=== PATIENT | male | born 1960 | race Caucasian/White ===

== ENCOUNTER → 2025-01-29 12:20 | Outpatient (CLI) | payer MEDICARE, OTHER, SELFPAY ==
--- NOTE | 2025-01-29 12:26 | DI.CT.S_ITS ---
PROCEDURE: CT SOFT TISSUE NECK W CON INDICATIONS: NECK MASS TECHNIQUE: After the administration of intravenous contrast, 3.0 mm axial sections acquired from the sella to the aortic arch. Additional oblique axial 3.0 mm sections acquired through the pharynx. 3 mm thick coronal and sagittal reformats were generated. For radiation dose reduction, the following was used: automated exposure control. COMPARISON: None. FINDINGS: Image quality: Excellent. Lymph nodes: Soft tissue mass measuring 2.4 x 1.8 cm within the left neck area of concern, may represent an enlarged level 2A lymph node. Additional enlarged left cervical lymph node measuring 1.3 cm more inferiorly (level 3). Vessels: Visualized vasculature appears patent. Neck spaces: The oropharynx, nasopharynx, and pharynx demonstrate no mucosal lesions. The vocal cords, false vocal cords, pyriform sinuses, epiglottis, vallecula, and tongue base all appear normal. Extramucosal spaces appear unremarkable. Glands: The parotid and left submandibular glands appear normal. The right submandibular gland appears atrophied Thyroid gland demonstrates no significant abnormality. Miscellaneous: Visualized brain and orbits appear normal. Lung apices appear clear. Superficial soft tissues appear normal. Bones: No suspicious bony lesions. Visualized sinuses and mastoids appear unremarkable. IMPRESSION: Within the area of interest in the left neck is a soft tissue mass measuring 2.4 x 1.8 cm, possibly enlarged lymph node. There is an additional enlarged lymph node more inferiorly measuring 1.3 cm in short axis. Recommend ultrasound-guided sampling for further evaluation or short-term follow-up ultrasound to evaluate for decreased size. Dictated by: Jose Angel Quiroz M.D. on 01/29/2025 at 14:08 Approved by: Jose Angel Quiroz M.D. on 01/29/2025 at 14:16
[2025-01-29 13:00] LABS: Estimated Glomerular Filt Rate > 60 mL/min (>60)
== END ==
PROVIDERS: Family Provider Family Medicine; PCP Internal Medicine; Referring Provider Internal Medicine; Visit Provider Otolaryngology
DX: R59.0 Localized enlarged lymph nodes (principal); R22.1 Localized swelling, mass and lump, neck
CPT/HCPCS: 36415; 70491; 82565; Q9967

== ENCOUNTER 2025-04-04 10:33 | Day surgery (SDC) | payer MEDICARE, OTHER, SELFPAY ==
[2025-03-26 09:17] VITALS: BMI 31.9
--- NOTE | 2025-04-04 | PATH_ITS ---
[facility] Accession Number: [id number] No. of containers..02 Tissue 04 Unknown Storage/container code(s) . 01 Material submitted: . PART A: neck - LEFT NECK MASS (FORMALIN) PART B: neck - LEFT NECK MASS (B-FIXATIVE) . 01 Clinical history: . DRY SLIDES X2; WET SLIDES IN 95% ALCOHOL REAGENT X2 RPMI FIXATIVE X1 SENT TO FLOW CYTOMETRY. . 01 Diagnosis: A/B: LEFT NECK MASS, EXCISION: - Classic follicular lymphoma, grade 3A, follicular pattern, see comment and microscopic description. . COMMENT: Concurrent flow cytometry (ID: [id number]) demonstrated a population of abnormal CD10+ B-lymphocytes without light chain expression, consistent with the above diagnosis. - The findings were discussed with Yvette Gaspar, triage nurse at Dr. Van' office at 1:05 PM, 04/11/2025. [facility] 04/11/2025 1310 Local . 01 Electronically signed: . Trung Marques MD, Pathologist NPI- [id number] . 01 Gross description: . A. Received in formalin with two identifiers and left neck mass, is a presumably previously incised disc of crawford fleshy soft tissue measuring 2.3 x 2.0 x 0.7 cm. Sectioning reveals a pink-crawford, fleshy cut surface. The specimen is submitted entirely in A1-A3. B. Received in B-Plus fixative with two identifiers and left neck mass, is a dome of blue-tinted, previously incised, fleshy soft tissue measuring 2.1 x 1.9 x 1.2 cm. The presumed cut surface is inked blue while the remaining presumed external surface is inked black and sectioning reveals a pink-crawford, fleshy cut surface. Submitted entirely in B1-B3. ([id number]) /MRV 04/05/2025 1900 Local . 01 Microscopic: . - Histologic sections demonstrate lymph node tissue with a prominent atypical lymphoid infiltrate within expansile germinal centers (GC) without clear polarization or tingible body macrophages. These neoplastic GCs contain a mixture of large centroblasts, and small centrocytes. - An immunohistochemical penal was indicated with adequate controls for block A2 and select stains for block B2 (CD3, PAX5, CD10, BCL-2) and show abnormal GCs with intact follicular dendritic cell (ASSISTED) meshworks positive for CD21. GCs are filled with neoplastic lymphoid cells that are positive for CD20, PAX-5, CD10, BCL-6 (patchy, variable intensity), BCL-2, and MUM1 (patchy, variable intensity); while negative for CD5, and Cyclin D1. The Ki-67 proliferation index is high, approximately 50-60% within neoplastic GCs. Background T-cells are mostly present outside the follicles and are highlighted by CD3 and CD5 in a similar fashion, as well as BCL-2. - The overall immunomorphologic pattern is most consistent with follicular lymphoma, now termed Classic Follicular lymphoma by WHO classification of tumors (updated 5th edition). The proportion of centroblasts is greater than 15 per high power field, consistent with grade 3A follicular lymphoma. Note that grading has recently been considered optional for classical follicular lymphoma as no statistically significant difference in clinical outcomes between grades 1, 2, and 3A patients have been identified in several studies. - As part of ongoing machined parts quality inspector, select slides were reviewed by Dr. Rosette Avery who agrees with the interpretation. Technical Note: The immunohistochemical stains reported were performed at [facility] ([address], [facility] [address]). This test was developed, and the performance characteristics were validated by [facility]. It has not been cleared or approved by the Food and Drug Administration. . 01 Pathologist provided ICD-10: R22.1 . 01 CPT . 171200, 985309, Z88446, C00725, 179638 Specimen Comment: A courtesy copy of this report has been sent to [phone] Performed at: [address] [facility] [address] [address] [address] [facility] [place], [place], [place] [id number] MD Frandy Chatman MD Phone: [phone]
[2025-04-04 10:53] VITALS: BP 154/82; PULSE 93; RESP 17; TEMP 37.1; O2SAT 98; BMI 32.0
[2025-04-04] MEDS: LACTATED RINGERS 1,000 ML 84 ML IV (11:06)
[2025-04-04] MEDS: ACETAMINOPHEN 325 MG TABLET 975 MG PO (11:06)
--- NOTE | 2025-04-04 12:35 | PM.PREOP ---
Pre-operative Note Interval Note History & Physical reviewed/Exam performed by Physician: Yes Changes to H&P: No
--- NOTE | 2025-04-04 12:37 | PM.HP.1 ---
History of Present Illness History of Present Illness Time Patient Seen: 12:37 Chief complaint: Left neck mass Narrative: 64-year-old male last seen in clinic 02/04/2025 presents for left deep cervical node excision. FNA in the office was inconclusive, could not rule out low-grade lymphoma. No recent health changes, wishes to proceed. [facility] Medical History Cervical lymphadenopathy Neck mass Bilateral cataracts IBS (irritable bowel syndrome) HTN (hypertension) Surgical History No history of previous surgery Social History Smoking Status: Former smoker alcohol intake: current Meds Home Medications and Allergies Home Medications ?Medication ?Instructions ?Recorded ?Confirmed ?Type No Known Home Medications 04/04/25 04/04/25 History Allergies Allergy/AdvReac Type Severity Reaction Status Date / Time No Known Drug Allergies Allergy Verified 04/04/25 10:46 Review of Systems Review of Systems Narrative: Negative except as listed in the HPI Exam Vital Signs (past 8 hours): - 04/04/25 10:53 Temperature 98.8 F Pulse Rate 93 H Respiratory Rate 17 Blood Pressure 154/82 H Pulse Oximetry 98 Oxygen Delivery Method Room Air Oxygen Delivery Method Room Air Narrative Exam Narrative: Well-developed well-nourished, heart regular rate and rhythm without murmur, lungs clear to auscultation bilaterally Assessment & Plan Assessment & Plan narrative: Assessment: Left neck mass, possible lymphoma Plan: Following discussion of the material risks benefits complications and alternatives, the patient elected to proceed. Time-Based Coding :: [TOTAL MINUTES] spent with patient and on the chart (including review of chart, obtaining history, exam, reviewing outside data, placing orders, documenting exam and treatment plan, and counseling patient) on [DATE].
--- NOTE | 2025-04-04 12:39 | PM.OP.1 ---
Operative Date/Time/Diagnoses Date of procedure: 04/04/25 Time of procedure: 14:09 Pre-op diagnosis: Left deep level 2 neck mass Post-op diagnosis: same Procedure & Clinicians Procedure: Excision left level 2 deep neck mass Same procedure(s) as scheduled: Yes Indications: 64 Year old with the above diagnoses incompletely managed with medical therapy presents for the above procedure. Following discussion of the material risks benefits complications and alternatives, the patient elected to proceed. Surgeon: Kendell Van Click Yes if Unassisted: Yes Anesthesia Type: General and Local Operative Notes Findings: 2.5 cm mass consistent with lymph node, deep to platysma, adjacent to submandibular gland. Sent for lymphoma protocol. Specimen(s): other (LEFT neck mass) Applied: none Estimated Blood Loss (mL): 5 Procedure in detail: Following identification and confirmation of consent, as well as the site of lesion in the left submandibular area, patient was brought to the operating room suite and placed in the supine position. General laryngeal maskl anesthesia was administered. The head was turned to the right and a proposed incision was marked in ink in a relaxed skin tension line 2 fingerbreadths inferior to the angle of the mandible, and widely infiltrated with 1% lidocaine 1 100,000 epinephrine. Following sterile prep and drape, 15 blade incised the skin and subcutaneous tissue, and the platysma was divided with hemostat and Bovie. The mass was identified and circumferentially dissected free with small vessels ligated with bipolar cautery. The wound cavity was irrigated with Betadine and the platysma was closed with interrupted 4-0 chromic, followed by a separate layer for the subcutaneous tissue and deep dermis. Five 0 running nylon closed the skin. Antibiotic ointment was applied. Dressing was applied. He was extubated in the operating room and taken to the recovery room in stable condition without known complication. Complications: none Post-operative Condition: stable Disposition: same day surgery Plan for aftercare: Ice as needed for pain control or bleeding, Vaseline to the incision at all times until follow-up in 1 week. May shower starting tomorrow. Tylenol for baseline pain control, oxycodone for breakthrough pain.
--- NOTE | 2025-04-04 13:32 | SUR.OPER ---
Supine on padded OR bed, head on pillow,left arm padded and tucked at side, right arm on padded armboard at less than 90degrees abductionlegs uncrossed, safety belt at thigh, tape over blanket over lower legs .
[2025-04-04] MEDS: BACITRACIN 28 GM OINT 1 APPLIC TOP (13:46)
[2025-04-04] MEDS: LIDOCAINE 1% W/EPI 10ML 20 ML INJ (13:47)
[2025-04-04 14:12] VITALS: BP 150/74; PULSE 75; RESP 20; TEMP 36.8; O2SAT 94
[2025-04-04 14:23] VITALS: BP 142/71; PULSE 71; RESP 12; TEMP 36.8; O2SAT 94
[2025-04-04 14:28] VITALS: BP 145/76; PULSE 70; RESP 15; TEMP 36.9; O2SAT 95
== END 2025-04-04 14:53 | disposition home or self-care (01) ==
PROVIDERS: Family Provider Family Medicine; PCP Internal Medicine; Referring Provider Otolaryngology; Visit Provider Otolaryngology
PROC: 0HB1XZZ Excision of Face Skin, External Approach (ICD-10-PCS; CPT 38510; principal; 2025-04-04 12:00)
DX: C82.31 Follicular lymphoma grade IIIa, lymph nodes of head, face, and neck (principal); Z87.891 Personal history of nicotine dependence
CPT/HCPCS: 38510; J2704; J3010